=== PATIENT | female | born 1965 | race Caucasian/White ===

== ENCOUNTER → 2017-02-24 08:30 | Outpatient (CLI) | payer MEDICAID ==
[~2017-02-24 08:30] MED LIST: CENTRUM SILVER1 EAC3 PO; COLACE100 MG PO; DILAUDID4 MG PO; FISH OIL 1,0001 CA1 PO; HYDROCODON-ACE1 EAC7 PO; KLONOPIN1 MG PO; LOVENOX40 MG/0.4 SC; MIRALAX17 GM PO; PHENERGAN25 M1 PO; ZOFRAN ODT4 MG/UDTAB PO
[2017-04-12 13:14] VITALS: BMI 17.8
== END | disposition home or self-care (01) ==
LOC: D.CT 08:30
DX: R10.9 Unspecified abdominal pain (principal); R10.2 Pelvic and perineal pain

== ENCOUNTER 2017-03-07 21:26 | Observation (INO) | payer MEDICAID ==
[~2017-03-07] VITALS: Ht 172.7 cm; Wt 49.1 kg
[2017-03-07 23:44] LABS: INR 1.04 (0.85-1.17); PROTIME 13.5 SECONDS (11.6-15.0)
[2017-03-07 23:45] LABS: HEMATOCRIT 35.1 % (36.0-48.0); HEMOGLOBIN 11.9 g/dL (12-16); LYMPHOCYTES 12.3 % (15-50); MCH 32.8 pg (26.0-34.0); MCHC 33.9 g/dL (31.0-37.0); MCV 96.7 fL (80.0-100.0); NEUTROPHILS 79.6 % (40-80); PLATELET COUNT 324 10x3/uL (130-400); RBC 3.63 10x6/uL (4.00-5.40); RDW 12.6 % (11.5-14.5); WBC 13.2 10x3/uL (4.8-10.8)
[2017-03-07 23:49] LABS: ALBUMIN 3.2 g/dL (3.4-5.0); ALKALINE PHOSPHATASE 61 U/L (46-116); ALT (SGPT) 20 U/L (10-68); BILIRUBIN - TOTAL 0.25 mg/dL (0.2-1.3); CALC OSMOLALITY 275 mosm/kg (275-300); CALCIUM 9.5 mg/dL (8.5-10.1); CARBON DIOXIDE 27.9 mmol/L (21.0-32.0); CHLORIDE - SERUM 99 mmol/L (98-107); CREATINE KINASE 16 UL (21-215); CREATININE - SERUM 0.7 mg/dL (0.6-1.3); GLUCOSE 147 mg/dL (74-106); POTASSIUM - SERUM 4.1 mmol/L (3.5-5.1); PROTEIN - SERUM 7.8 g/dL (6.4-8.2); SODIUM 137 mmol/L (136-145); UREA NITROGEN 9 mg/dL (7-18); eGFR NON AFRICAN AMERICAN > 90 mL/min (90-120)
[2017-03-08 00:08] LABS: APPEARANCE CLEAR (CLEAR); BILIRUBIN NEGATIVE (NEGATIVE); COLOR YELLOW (YELLOW); GLUCOSE NEGATIVE (NEGATIVE); KETONE NEGATIVE (NEGATIVE); NITRITE NEGATIVE (NEGATIVE); PROTEIN TRACE mg/dL (NEGATIVE); SPECIFIC GRAVITY 1.015 (1.005-1.020); UDS - AMPHET NEGATIVE QUAL (NEGATIVE); UDS - BARB NEGATIVE QUAL (NEGATIVE); UDS - BENZO NEGATIVE QUAL (NEGATIVE); UDS - COCAINE NEGATIVE QUAL (NEGATIVE); UDS - OPIATE POSITIVE QUAL (NEGATIVE); UDS - PCP NEGATIVE QUAL (NEGATIVE); UDS - THC NEGATIVE QUAL (NEGATIVE); UROBILINOGEN NORMAL (NORMAL)
[2017-03-08 00:11] LABS: BACTERIA FEW /hpf (NONE SEEN); EPITHELIAL CELLS 0-5 /hpf (0-5); RED CELLS - URINE 0-5 /hpf (0-5)
[2017-03-08] MEDS ORDERED: PHENERGAN25 M1 PO (04:23)
[2017-03-08] MEDS ORDERED: DILAUDID4 MG PO (04:23)
[2017-03-08] MEDS ORDERED: LOVENOX40 MG/0.4 SC (04:24)
[2017-03-08] MEDS ORDERED: COLACE100 MG PO (04:26)
[2017-03-08] MEDS ORDERED: KLONOPIN1 MG PO (04:26)
[2017-03-08] MEDS ORDERED: MIRALAX17 GM PO (04:28)
[2017-03-08 06:45] VITALS: BP 154/81; Ht 172.7 cm; Wt 49.1 kg
--- NOTE | 2017-03-08 08:09 | NUR ---
AWAKE AND ALERT. ORIENTED X3. C/O PAIN AND NAUSEA. BANKING ATTORNEY INCREASED PER ORDERS AND GIVEN 12.5 PHENERGAN SLOW IVP FOR NAUSEA. WILL MONITOR. LUNGS ARE CLEAR BIALTERALLY, NO COUGH NOTED. SKIN IS INTACT WITHOUT REDNESS EXCEPT DRAIN TO LEFT LOWER BACK/SIDE WHICH HAS A DRY INTACT DRESSING IN PLACE AND SCANT AMOUNT OF SEROUS DRAINAGE NOTED. WILL MONITOR. IV TO LEFT FOREARM IS PATNET WITHOUT REDNESS AT INSERTION SITE. DENIES FURTHER NEEDS. MOM AT BEDSIDE.
[2017-03-08 09:27] VITALS: BP 143/74
--- NOTE | 2017-03-08 10:00 | NUR ---
RESTING QUIETLY WITH EYES CLOSED. NO NEEDS NOTED.
[2017-03-08 13:08] VITALS: BP 139/67
--- NOTE | 2017-03-08 14:15 | NUR ---
REPORT CALLED TO MICHAEL MACK RN AT [facility]. ALL QUESTIONS ANSWERED.
--- NOTE | 2017-03-08 15:37 | NUR ---
DISCHARGED TO [facility] VIA AMBULANCE. MOM AT BEDSIDE.
[2017-04-07] MEDS ORDERED: PHENERGAN25 M1 PO (08:17)
[2017-04-07] MEDS ORDERED: KLONOPIN1 MG PO (08:18)
[2017-04-07] MEDS ORDERED: ZOFRAN ODT4 MG/UDTAB PO (08:19)
== END 2017-03-08 15:38 | disposition short-term general hospital (02) ==
LOC: D.ER 21:26 → D.MS 03-08 02:47 → OBSVTIME 03-08 02:47 → D.MS 03-08 02:47
PROVIDERS: Nurse Practitioner Family; ADMIT Obstetrics & Gynecology
DX: G89.3 Neoplasm related pain (acute) (chronic) (principal); D49.59 Neoplasm of unspecified behavior of other genitourinary organ; K75.9 Inflammatory liver disease, unspecified; R18.8 Other ascites

== ENCOUNTER 2017-04-12 11:49 | Day surgery (SDC) | payer MEDICAID ==
[~2017-04-12] VITALS: Ht 172.7 cm; Wt 53.1 kg
--- NOTE | ~2017-04-12 | OP ---
PATIENT NAME: KELVIN PIERRE MEDICAL RECORD: [id number] :65 LOCATION:D.OPS ADMISSION DATE: SURGEON: ALAN SNIDER MD DATE OF OPERATION: 04/12/2017 PREOPERATIVE DIAGNOSES: 1. Ovarian cancer. 2. Anemia due to chemotherapy. POSTOPERATIVE DIAGNOSES: 1. Ovarian cancer. 2. Anemia due to chemotherapy. PROCEDURES: 1. Left subclavian vein port placement. 2. Fluoroscopic interpretation. SURGEON: Alan Snider MD OPERATIVE PROCEDURE: The patient's left chest was prepped and draped in sterile fashion. A needle was used to cannulate the left subclavian vein. The guidewire was advanced with ease. Fluoro was used to note that the wire was in good position in the venous system. A skin incision was made on the left lateral chest and a subcutaneous pouch was made over the pectoral fascia. The catheter was tunneled between this pouch and the wire exit site. The port was then sutured to the pectoral fascia using interrupted 4-0 Prolenes times 2. The catheter was then cut with a beveled tip at 22 cm. The dilator trocar device was placed over the wire and the wire and dilator were removed. The catheter tip was advanced through the trocar and the trocar was removed. Fluoro was used to note that the catheter tips were in good position at the right atrial superior vena caval junction. The catheter aspirated nonpulsatile dark blood and flushed easily with heparinized saline. The subcutaneous tissues were reapproximated with interrupted 3-0 Vicryl and the skin was closed with subcutaneous 5-0 Monocryl. The port was accessed and flushed one last time and a dressing was applied. COMPLICATIONS: None. CONDITION: Stable. ANESTHESIA: General endotracheal. BLOOD LOSS: Minimal. TRANSINT:[id number] Voice Confirmation ID: [id number] DOCUMENT ID: [id number] ALAN SNIDER MD at 0956 CC: HELGA SAMSON MD and STU COTTON MD [id number] DICTATION DATE: 04/12/17 1530 TOOTH GRINDER: 04/12/17 1637 [facility] 04/12/17 [facility] [address] [id number]
[~2017-04-12 11:49] MED LIST changes: -CENTRUM SILVER1 EAC3 PO; -FISH OIL 1,0001 CA1 PO; -HYDROCODON-ACE1 EAC7 PO
[2017-04-12 12:31] LABS: BASOPHILS 0 % (0-2); EOSINOPHILS 1.5 % (0-7); HEMATOCRIT 29.6 % (36.0-48.0); HEMOGLOBIN 9.5 g/dL (12-16); IMMATURE GRANULOCYTES 0.4 % (0-5); LYMPHOCYTES 35.6 % (15-50); MCH 31.9 pg (26.0-34.0); MCHC 32.1 g/dL (31.0-37.0); MCV 99.3 fL (80.0-100.0); MEAN PLATELET VOLUME 9.1 fL (7.4-10.4); MONOCYTES 11.3 % (2-11); NEUTROPHILS 51.2 % (40-80); RBC 2.98 10x6/uL (4.00-5.40); RDW 17.4 % (11.5-14.5); WBC 2.8 10x3/uL (4.8-10.8)
[2017-04-12 12:32] LABS: PLATELET COUNT 177 10x3/uL (130-400)
[2017-04-12 12:49] LABS: APTT 27.3 SECONDS (22.8-39.4); INR 1.04 (0.85-1.17); PROTIME 13.2 SECONDS (11.6-15.0)
[2017-04-12 12:55] LABS: ALBUMIN 3.8 g/dL (3.4-5.0); ALKALINE PHOSPHATASE 50 U/L (46-116); ALT (SGPT) 13 U/L (10-68); BILIRUBIN - TOTAL 0.16 mg/dL (0.2-1.3); CALC OSMOLALITY 282 mosm/kg (275-300); CALCIUM 9.5 mg/dL (8.5-10.1); CARBON DIOXIDE 31.8 mmol/L (21.0-32.0); CHLORIDE - SERUM 101 mmol/L (98-107); CREATININE - SERUM 0.6 mg/dL (0.6-1.3); GLUCOSE 105 mg/dL (74-106); POTASSIUM - SERUM 3.9 mmol/L (3.5-5.1); PROTEIN - SERUM 7.2 g/dL (6.4-8.2); SODIUM 141 mmol/L (136-145); UREA NITROGEN 19 mg/dL (7-18); eGFR NON AFRICAN AMERICAN > 90 mL/min (90-120)
[2017-04-12] MEDS ORDERED: CENTRUM SILVER1 EAC3 PO (13:12)
[2017-04-12] MEDS ORDERED: FISH OIL 1,0001 CA1 PO (13:13)
[2017-04-12 13:14] VITALS: BP 125/79; Ht 172.7 cm; Wt 53.1 kg
[2017-04-12] MEDS ORDERED: HYDROCODON-ACE1 EAC7 PO (15:27)
== END 2017-04-12 16:35 | disposition home or self-care (01) ==
LOC: D.OPS 11:49 → D.PAN 14:30 → D.OPS 16:35
PROVIDERS: Anesthesiology
DX: D64.81 Anemia due to antineoplastic chemotherapy (principal); C56.9 Malignant neoplasm of unspecified ovary; Z01.812 Encounter for preprocedural laboratory examination

== ENCOUNTER → 2018-03-21 16:55 | Outpatient (CLI) | payer MEDICAID ==
[2017-04-12 13:14] VITALS: BMI 17.8
[~2018-03-21 16:55] MED LIST changes: +CENTRUM SILVER1 EAC3 PO; +FISH OIL 1,0001 CA1 PO; +HYDROCODON-ACE1 EAC7 PO
== END | disposition home or self-care (01) ==
LOC: D.MAMMO 10:30
DX: Z12.31 Encounter for screening mammogram for malignant neoplasm of breast (principal)

== ENCOUNTER → 2019-03-23 07:55 | Outpatient (CLI) | payer MEDICAID ==
[2017-04-12 13:14] VITALS: BMI 17.8
== END | disposition home or self-care (01) ==
LOC: D.CT 07:55
PROVIDERS: ATTEND Surgery
DX: C56.9 Malignant neoplasm of unspecified ovary (principal)

== ENCOUNTER 2019-03-30 05:49 | Day surgery (SDC) | payer MEDICAID ==
[~2019-03-30] VITALS: Ht 172.7 cm; Wt 56.8 kg
--- NOTE | ~2019-03-30 | OP ---
PATIENT NAME: KELVIN FLOWER MEDICAL RECORD: [id number] :65 LOCATION:[place] ADMISSION DATE: SURGEON: ALAN SNIDER MD DATE OF OPERATION: 03/30/2019 PREOPERATIVE DIAGNOSES: Vaginal cancer with partial large bowel obstruction. POSTOPERATIVE DIAGNOSES: Vaginal cancer with partial large bowel obstruction. PROCEDURE: Flexible sigmoidoscopy. SURGEON: Alan Snider MD REPORT OF PROCEDURE: I performed a digital rectal exam and I could feel a mass present at the tip of my finger. I felt like I could maybe get my fingertip through this opening, but it was very difficult to tell. I then performed a vaginal exam and under digital examination, the posterior wall of the vagina was very firm and nodular consistent with the known malignancy. Upon performing this, there was noted to be some bleeding from the vaginal region. We then inserted the Olympus endoscope. When we had gotten to about 2 cm from the anal verge, we encountered a firm mass, which appeared to be not only compression externally, but also incorporating a portion of the colon itself. I could see a very small opening through this, but was never able to pass the scope. At this point, we discontinued the endoscopy. COMPLICATIONS: None. CONDITION: Stable. ANESTHESIA: TIVA. BLOOD LOSS: Minimal. TRANSINT:[id number] Voice Confirmation ID: [id number] DOCUMENT ID: [id number] ALAN SNIDER MD CC: STU COTTON [id number] DICTATION DATE: 03/30/19810 PHOTO LAB MANAGER: 03/30/19 1125 [facility] 03/30/19 [address] [place] [address]
[2019-03-30 06:12] LABS: BASOPHILS 0.1 % (0-2); EOSINOPHILS 0.7 % (0-7); HEMATOCRIT 33.8 % (36.0-48.0); HEMOGLOBIN 10.9 g/dL (12-16); IMMATURE GRANULOCYTES 0.4 % (0-5); LYMPHOCYTES 7.6 % (15-50); MCH 35.5 pg (26.0-34.0); MCHC 32.2 g/dL (31.0-37.0); MCV 110.1 fL (80.0-100.0); MEAN PLATELET VOLUME 9.4 fL (7.4-10.4); MONOCYTES 10.7 % (2-11); NEUTROPHILS 80.5 % (40-80); PLATELET COUNT 186 10x3/uL (130-400); RBC 3.07 10x6/uL (4.00-5.40); WBC 7.3 10x3/uL (4.8-10.8)
[2019-03-30 06:34] LABS: CALC OSMOLALITY 284 mosm/kg (275-300); CALCIUM 9.3 mg/dL (8.5-10.1); CARBON DIOXIDE 32.1 mmol/L (21.0-32.0); CHLORIDE - SERUM 102 mmol/L (98-107); CREATININE - SERUM 0.8 mg/dL (0.6-1.3); GLUCOSE 108 mg/dL (74-106); POTASSIUM - SERUM 3.2 mmol/L (3.5-5.1); SODIUM 142 mmol/L (136-145); UREA NITROGEN 16 mg/dL (7-18); eGFR NON AFRICAN AMERICAN 79 mL/min (90-120)
[2019-03-30] MEDS ORDERED: ULTRAM50 MG PO (06:40)
[2019-03-30] MEDS ORDERED: VITAMIN D31000 UNIT PO (06:41)
[2019-03-30 06:56] VITALS: BP 115/77; Ht 172.7 cm; Wt 56.8 kg
== END 2019-03-30 09:12 | disposition home or self-care (01) ==
LOC: D.OPS 05:49
PROVIDERS: ATTEND Surgery
DX: C52 Malignant neoplasm of vagina (principal); K56.690 Other partial intestinal obstruction; C56.9 Malignant neoplasm of unspecified ovary

== ENCOUNTER 2019-04-18 17:32 | Inpatient (IN) | payer MEDICAID ==
[~2019-04-18] VITALS: Ht 167.6 cm; Wt 67.1 kg
[~2019-04-18 17:32] MED LIST changes: +ULTRAM50 MG PO; +VITAMIN D31000 UNIT PO
[2019-04-19] MEDS ORDERED: GLUCOSAMINE (08:55)
[2019-04-19] MEDS ORDERED: TUMERIC (08:55)
[2019-04-19 09:44] LABS: APTT 25.7 SECONDS (22.8-39.4); INR 1.1 (0.85-1.17); PROTIME 14.2 SECONDS (11.6-15.0)
[2019-04-19 09:47] LABS: CALC OSMOLALITY 277 mosm/kg (275-300); CARBON DIOXIDE 32.4 mmol/L (21.0-32.0); CHLORIDE - SERUM 101 mmol/L (98-107); CREATININE - SERUM 0.8 mg/dL (0.6-1.3); GLUCOSE 102 mg/dL (74-106); POTASSIUM - SERUM 3.4 mmol/L (3.5-5.1); SODIUM 139 mmol/L (136-145); UREA NITROGEN 12 mg/dL (7-18); eGFR NON AFRICAN AMERICAN 79 mL/min (90-120)
[2019-04-19 10:49] LABS: BASOPHILS 0.2 % (0-2); EOSINOPHILS 0.5 % (0-7); HEMOGLOBIN 10.4 g/dL (12-16); IMMATURE GRANULOCYTES 0.7 % (0-5); LYMPHOCYTES 6.1 % (15-50); MCH 35.7 pg (26.0-34.0); MCHC 32.5 g/dL (31.0-37.0); MEAN PLATELET VOLUME 11.8 fL (7.4-10.4); MONOCYTES 6.1 % (2-11); NEUTROPHILS 86.4 % (40-80); RBC 2.91 10x6/uL (4.00-5.40); RDW 16.6 % (11.5-14.5); WBC 13.2 10x3/uL (4.8-10.8)
[2019-04-19 10:53] LABS: PLATELET COUNT 65 10x3/uL (130-400)
[2019-04-19 11:45] LABS: PLATELET ESTIMATE DECREASED
[2019-04-20] VITALS (15 sets, daily range): BP systolic 79–140; BP diastolic 43–79; BMI 19.9; BMI 20.2
--- NOTE | 2019-04-20 09:07 | NUR ---
0845 PT C/O ARM HURTING AROUND IV SITE AFTER MORPHINE IV WAS GIVEN. AREA IS RED. SOME ITCHING ASSOCIATED WITH PAIN. 0850 PIERRE OCHOA CRNA AT BEDSIDE AND STATES THAT IT IS AN ALLERGIC REACTION DUE TO HISTAMINE RELEASE. ORDERS RECEIVED FOR BENADRYL. 0905 REDNESS AROUND IV SITE IS LESS AFTER ADMINISTRATION OF BENADRYL IV. PT REPORTS THAT PAIN AND ITCHING IS GONE.
--- NOTE | 2019-04-20 12:50 | NUR ---
1245 TYPE AND SCREEN SPECIMEN AND CBC BLOOD SPECIMEN OPTAINED AND SENT TO LAB
[2019-04-20 13:10] LABS: BASOPHILS 0.1 % (0-2); EOSINOPHILS 0.2 % (0-7); HEMATOCRIT 26.1 % (36.0-48.0); HEMOGLOBIN 8.7 g/dL (12-16); IMMATURE GRANULOCYTES 0.7 % (0-5); MCH 36.1 pg (26.0-34.0); MCHC 33.3 g/dL (31.0-37.0); MCV 108.3 fL (80.0-100.0); MEAN PLATELET VOLUME 11.4 fL (7.4-10.4); PLATELET COUNT 77 10x3/uL (130-400); RBC 2.41 10x6/uL (4.00-5.40); RDW 16.5 % (11.5-14.5)
--- NOTE | 2019-04-20 14:42 | NUR ---
PATIENT VS LOW. MANUAL WAS 78/42 AND 76/40. REPORTED TO DR SNIDER HER H/H AND BP. HE SAID TO RUN A BOLUS. WCTM
--- NOTE | 2019-04-20 17:44 | NUR ---
PT BROUGHT TO ICU PLACED ON BEDSIDE MONITORING. IS CONVERSANT. SALINE BOLUS GIVEN. ORDERS RECEIVED FROM DR RAYMUNDO ENTERED.
--- NOTE | 2019-04-20 19:40 | NUR ---
PATIENT RESTING COMFORTABLY, AT BEDSIDE, SHIFT ASSESSMENT COMPLETED, PT AAOX4. 98% ROOM AIR, ATRIAL FLUTTER AT A RATE OF 128 NOTED, PRBC INFUSING AT THIS TIME. ABDOMEN IS DISTENDED AND TENDER PALPABLE MASSES LEFT AND RIGHT SUPRAPUBIC AREA. PATIENT DENIES NEEDS AT THIST TIME, SEE FLOWSHEET FOR FULL ASSESSMENT.
--- NOTE | 2019-04-20 20:15 | NUR ---
LAP SITE BLEEDING THROUGH BANDAID. REMOVED AND PRESSURE HELD, RE DRESSED WITH 4X4 AND PAPERTAPE. DRESSING SATURATED THROUGH WITHIN 10 MINUTES, REDRESSED WITH ABD PAD AND MEDIPORE TAPE WHILE HOLDING FIRM PRESSURE, WILL CONTINUE TO MONITOR
--- NOTE | 2019-04-20 21:36 | NUR ---
PATIENT REQUESTED PRN MEDICATIONS SEE EMAR FOR ADMINISTRATION
--- NOTE | 2019-04-20 23:04 | NUR ---
REASSESSMENT COMPLETED SEE FLOWSHEET - DR SNIDER CALLED UPDATE GIVEN ALL QUESTIONS ANSWERED. PT PROVIDED WITH TOOTHBRUSH AND TOOTHPASTE PER REQUEST, INDEPENDANT ORAL CARE. 1 UNIT FFP INFUSING AT THIS TIME. VSS CPOC
[2019-04-21] VITALS (17 sets, daily range): BP systolic 115–150; BP diastolic 60–88; Ht 167.6 cm; Wt 67.1 kg
--- NOTE | 2019-04-21 01:30 | NUR ---
ENCOURAGED PATIENT TO SIT ON BEDPAN FOR URINATED. 150 CC OUTPUT AT THIS TIME.
--- NOTE | 2019-04-21 03:15 | NUR ---
REASSESSMENT COMPLETED SEE FLOWSHEET
--- NOTE | 2019-04-21 04:13 | NUR ---
PATIENT PROVIDED WITH BEDPAN AT THIS TIME 200 CC OUPTUT AT THIS TIME
[2019-04-21 04:25] LABS: BASOPHILS 0.1 % (0-2); EOSINOPHILS 0.1 % (0-7); HEMATOCRIT 24.7 % (36.0-48.0); HEMOGLOBIN 8.4 g/dL (12-16); IMMATURE GRANULOCYTES 0.5 % (0-5); LYMPHOCYTES 5.6 % (15-50); MCH 33.6 pg (26.0-34.0); MEAN PLATELET VOLUME 9.9 fL (7.4-10.4); MONOCYTES 7.9 % (2-11); NEUTROPHILS 85.8 % (40-80); RDW 19.1 % (11.5-14.5)
[2019-04-21 04:27] LABS: MCV 98.8 fL (80.0-100.0); WBC 15.3 10x3/uL (4.8-10.8)
[2019-04-21 04:28] LABS: PLATELET COUNT 134 10x3/uL (130-400)
[2019-04-21 04:36] LABS: CALC OSMOLALITY 284 mosm/kg (275-300); CALCIUM 7.9 mg/dL (8.5-10.1); CARBON DIOXIDE 30.7 mmol/L (21.0-32.0); CHLORIDE - SERUM 106 mmol/L (98-107); CREATININE - SERUM 0.7 mg/dL (0.6-1.3); GLUCOSE 117 mg/dL (74-106); POTASSIUM - SERUM 3.2 mmol/L (3.5-5.1); SODIUM 142 mmol/L (136-145); UREA NITROGEN 15 mg/dL (7-18); eGFR NON AFRICAN AMERICAN > 90 mL/min (90-120)
--- NOTE | 2019-04-21 07:00 | NUR ---
BEDSIDE REPORT RECEIVED. SHIFT ASSESSMENT COMPLETED PER FLOWSHEET, SEE FLOWSHEET FOR INFORMATION. PT DEMONSTRATED HOW TO EMPTY HER OWN COLOSTOMY BAG CORRECTLY. WILL CONT TO MONITOR.
--- NOTE | 2019-04-21 09:00 | NUR ---
PT FAMILY AT BEDSIDE, NO ACUTE NEEDS OR DISTRESS NOTED AT THIS TIME. CALL LIGHT IN REACH, WILL CONT TO MONITOR.
--- NOTE | 2019-04-21 11:00 | NUR ---
REASSESSMENT COMPLETED PER FLOWSHEET, SEE FLOWSHEET FOR INFORMATION. PT DENIES ANY ACUTE NEEDS OR DISTRESS AT THIS TIME. EMPTIED COLOSTOMY. WILL CONT TO MONITOR.
--- NOTE | 2019-04-21 13:00 | NUR ---
PT DENIES ANY ACUTE NEEDS OR DISTRESS AT THIS TIME. PT ASSISSTED TO BSC. WILL CONT TO MONITOR.
[2019-04-21 13:34] LABS: BASOPHILS 0.1 % (0-2); EOSINOPHILS 0.5 % (0-7); HEMATOCRIT 25.6 % (36.0-48.0); HEMOGLOBIN 8.7 g/dL (12-16); IMMATURE GRANULOCYTES 0.4 % (0-5); LYMPHOCYTES 6.2 % (15-50); MEAN PLATELET VOLUME 10.1 fL (7.4-10.4); MONOCYTES 7.2 % (2-11); NEUTROPHILS 85.6 % (40-80); PLATELET COUNT 151 10x3/uL (130-400); RBC 2.56 10x6/uL (4.00-5.40); RDW 20.1 % (11.5-14.5); WBC 14.8 10x3/uL (4.8-10.8)
--- NOTE | 2019-04-21 14:54 | NUR ---
TEACHING PROVIDED FOR PT REGARDING COLOSTOMY CARE. ALSO CASE MANAGEMENT CONTACTED TO FIND OUT ABOUT MATERIAL SUPPLY FOR COLOSTOMY MATERIAL AT DISCHARGE FOR PT.
--- NOTE | 2019-04-21 17:26 | NUR ---
REPORT CALLED TO VICKEYIN MED SURG FOR PT TO GO TO ROOM 2234. WILL CONT TO MONITOR.
--- NOTE | 2019-04-21 17:35 | NUR ---
40 MEQ PO GIVEN. WILL CONT TO MONITOR.
--- NOTE | 2019-04-21 19:00 | NUR ---
BEDSIDE REPORT RECEIVED AND CARE OF PT ASSUMED. PT JUST TRANSFERRED FROM ICU. ORIENTED TO ROOM AND CALL LIGHT. NO IV FLUIDS INFUSING...PT STATED THEY HAD BEEN D/C'D THIS AM. COLOSTOMY PATENT WITH LOOSE STOOL IN COLLECTION BAG. STOMA PINK AND MOIST. SPOUSE AT BEDSIDE.
--- NOTE | 2019-04-21 20:00 | NUR ---
TEACHING PERFORMED ON OSTOMY APPLIANCE. PROVIDED SUPPLIES TO EMPTY AND X2 KITS FOR REPLACING.
--- NOTE | 2019-04-21 21:50 | NUR ---
GAVE TYLENOL PO PER REQUEST FOR BACK PAIN. WILL MONITOR FOR EFFECTIVENESS.
[2019-04-22] VITALS: BP 129/66
[2019-04-22 04:00] VITALS: BP 139/76
--- NOTE | 2019-04-22 06:25 | NUR ---
CHANGED OSTOMY APPLIANCE, TEACHING EACH STEP TO PATIENT AND SPOUSE. ANSWERED QUESTIONS AND SUGGESTED THEY MAY FIND VIDEOS ONLINE FOR TIPS IN MANAGING OSTOMY APPLIANCE.
--- NOTE | 2019-04-22 06:25 | NUR ---
TEACHING PERFORMED IN CHANGING OSTOMY APPLIANCE WITH PATIENT AND SPOUSE.
--- NOTE | 2019-04-22 09:25 | NUR ---
RESTING IN BED, NO DISTRESS NOTED, SL IN PLACE, IN ROOM, CONT TO MONITOR PAIN AND STOOLS
[2019-04-22 11:51] LABS: BASOPHILS 0.2 % (0-2); EOSINOPHILS 2.1 % (0-7); HEMATOCRIT 23.3 % (36.0-48.0); HEMOGLOBIN 7.8 g/dL (12-16); IMMATURE GRANULOCYTES 0.3 % (0-5); LYMPHOCYTES 8.2 % (15-50); MCH 34.1 pg (26.0-34.0); MCHC 33.5 g/dL (31.0-37.0); MCV 101.7 fL (80.0-100.0); MEAN PLATELET VOLUME 9.8 fL (7.4-10.4); MONOCYTES 7.3 % (2-11); NEUTROPHILS 81.9 % (40-80); PLATELET COUNT 148 10x3/uL (130-400); RBC 2.29 10x6/uL (4.00-5.40); RDW 19.9 % (11.5-14.5); WBC 12.7 10x3/uL (4.8-10.8)
[2019-04-22] MEDS ORDERED: ULTRAM50 MG PO (12:20)
[2019-04-22 13:17] VITALS: BP 123/78
--- NOTE | 2019-04-22 13:18 | MORECARE ---
CASE MANAGEMENT DISCHARGE SUMMARY PATIENT: KELVIN FLOWER UNIT: [id number] ADM DATE: 04/20/19 AGE: 53 : 65 SEX: F ROOM/BED: D.2234 AUTHOR: NICHELLE PARSONS PHYSICIAN: REFERRING PHYSICIAN: AKBAR SNIDER MD DATE OF SERVICE: 04/22/19 Discharge Plan Patient Name: KELVIN FLOWER [facility] [facility] 1965 Planned Disposition: Anticipated Discharge Date: Discharge Date: Expected LOS: Initial Reviewer: [email or web address] Initial Review Date: 04/22/2019 Generated: 04/22/19 2:17 pm DCPIA - Discharge Planning Initial Assessment Updated by [email or web address]: Catalina Vaca on 04/22/19 1:14 pm * Is the patient Alert and Oriented? Yes * How many steps to enter\exit or inside your home? * PCP CHAPIN * [facility] * Preadmission Environment Home with Family * ADLs Independent * Other Equipment BSC * List name and contact numbers for known caregivers / representatives who currently or will assist patient after discharge: BRYAN FLOWER - [facility] - [phone] * Verbal permission to speak to the caregivers and representatives has been obtained from the patient. Yes * Community resources currently utilized None * Additional services required to return to the preadmission environment? No * Can the patient safely return to the preadmission environment? Yes * Has this patient been hospitalized within the prior 30 days at any hospital? No Patient Name: KELVIN FLOWER Page [id number] at 1318 All edits/amendments must be made on the electronic document DICTATION DATE: 04/22/19 1317 REAL ESTATE REP: BHUMIKA 04/22/19 1317 RPT#: [id number] DC DATE: STATUS: ADM IN [facility] [address] [place] [address] END OF REPORT
--- NOTE | 2019-04-22 13:25 | MORECARE ---
CASE MANAGEMENT DISCHARGE SUMMARY PATIENT: KELVIN FLOWER UNIT: [id number] ADM DATE: 04/20/19 AGE: 53 : 65 SEX: F ROOM/BED: D.2234 AUTHOR: JAQUELINE,DOC PHYSICIAN: REFERRING PHYSICIAN: AKBAR SNIDER MD DATE OF SERVICE: 04/22/19 Discharge Plan Patient Name: KELVIN FLOWER Facility: [facility]:[place] : 1965 Planned Disposition: Anticipated Discharge Date: Discharge Date: Expected LOS: Initial Reviewer: [email or web address] Initial Review Date: 04/22/2019 Generated: 04/22/19 2:25 pm Comments DCP- Discharge Planning Updated by [email or web address]: Catalina Vaca on 04/22/19 12:[address] Patient Name: KELVIN FOLWER Admission Status: Urgent Accout number: [id number] Admission Date: 04-20-2019 : 1965 Admission Diagnosis: Attending: AKBAR SNIDER Current LOS: 2 Anticipated DC Date: Planned Disposition: Primary Insurance: [place] [employer]IONS [place] Discharge Planning Comments: CM met with patient to complete initial dc planning assessment. CM educated patient on the CM role and verbal consent given by patient to complete assessment. Patient lives at home with her where she is independent with her care. At discharge patient plans to return home and feels this is a safe discharge. CM discussed availability of home health, rehab services, and medical equipment. Her will be her industrial truck driver home. Patient has a bedside commode and states they have already ordered her ostomy supplies online and she has some from the hospital. CM gave patient an emergency ostomy kit from [facility]. CM gave [facility] [employer] [facility] and CM number if needed. Patient signed refusal for home health and DME at this time. Patient denied known discharge needs at this time. CM will continue to follow and will assist as needed with dc plans/needs Engineering Team Supervisor: Catalina Vaca DCPIA - Discharge Planning Initial Assessment Updated by [email or web address]: Catalina Vcaa on 04/22/19 1:14 pm * Is the patient Alert and Oriented? Yes * How many steps to enter\exit or inside your home? * PCP CHAPIN * Pharmacy [facility] * Preadmission Environment Home with Family * ADLs Independent * Other Equipment BSC * List name and contact numbers for known caregivers / representatives who currently or will assist patient after discharge: BRYAN FLOWER - [facility] - [phone] * Verbal permission to speak to the caregivers and representatives has been obtained from the patient. Yes * Community resources currently utilized None * Additional services required to return to the preadmission environment? No * Can the patient safely return to the preadmission environment? Yes * Has this patient been hospitalized within the prior 30 days at any hospital? No Last DP export: 04/22/19 12:18 p Patient Name: KELVIN FLOWER Page [id number] at 1325 All edits/amendments must be made on the electronic document DICTATION DATE: 04/22/19 1325 LENS BLANK GAUGER: BHUMIKA 04/22/19 1325 RPT#: [id number] DC DATE: STATUS: ADM IN [facility] [address] [place] [address] END OF REPORT
--- NOTE | 2019-04-22 14:49 | NUR ---
1404 D/C ORDERS PROVIDED TO PT, IV REMOVED, TIP INTACT, TAKEN TO PRIVATE VEHICLE PER W/C
--- NOTE | 2019-04-24 14:05 | DS ---
PATIENT:KELVIN FLOWER :65 MEDICAL RECORD: [id number] DISCHARGE SUMMARY ADMISSION DATE: 04/20/19 DISCHARGE DATE: 04/22/19 DATE OF ADMISSION: 04/30/2019. DATE OF DISCHARGE: 04/22/2019. ADMISSION DIAGNOSES: 1. Large bowel obstruction. 2. Metastatic ovarian cancer. 3. Anemia of chronic disease. DISCHARGE DIAGNOSES: 1. Large bowel obstruction. 2. Metastatic ovarian cancer. 3. Anemia of chronic disease. 4. Acute on chronic postoperative blood loss anemia. PROCEDURE: Laparoscopic double barrel sigmoid colectomy. CONSULTATIONS: None. REPORT OF HOSPITALIZATION: The patient was admitted to the hospital after a successful laparoscopic sigmoid double barrel colectomy. Postoperatively, the patient was noted to be tachycardic and hypotensive and blood count was around 5.5. The patient was transferred to the intensive care unit. She had known thrombocytopenia. She was given 3 units of packed red blood cells, a unit of FFP, and a unit of platelets. The patient had no bleeding following that time and was very stable. She was transferred to the floor the following day. She was tolerating a regular diet and had great ostomy output. She had marked improvement in her abdominal discomfort with the ostomy output. She was taught ostomy care by the nursing staff and at the day of discharge, she and her were very comfortable with the ostomy and had already ordered supplies. DISCHARGE INSTRUCTIONS: Return to clinic or call if any questions or concerns, fevers, chills, nausea, vomiting or worsening abdominal pain. ACTIVITIES: No heavy lifting or straining for 2 weeks postoperatively. FOLLOWUP: In clinic with me in 3 days for drain removal. TRANSINT:[id number] Voice Confirmation ID: [id number] DOCUMENT ID: [id number] AKBAR SNIDER MD at 1405 CC: STU COTTON [id number] DICTATION DATE: 04/22/19 1228 CONTAINER PACKER OPERATOR: 04/23/19 0704 DIS IN 04/22/[address] [address]
--- NOTE | 2019-04-24 14:05 | OP ---
PATIENT NAME: KELVIN FLOWER MEDICAL RECORD: [id number] :65 LOCATION:D.MS Wise2234 ADMISSION DATE:04/20/19 SURGEON: ALAN SNIDER MD DATE OF OPERATION: 04/20/2019 PREOPERATIVE DIAGNOSES: 1. Metastatic ovarian cancer. 2. Partial large bowel obstruction secondary to ovarian cancer. POSTOPERATIVE DIAGNOSES: 1. Metastatic ovarian cancer. 2. Partial large bowel obstruction secondary to ovarian cancer. PROCEDURE: Laparoscopic sigmoid colostomy double barrel. SURGEON: Alan Snider MD REPORT OF PROCEDURE: The patient's abdomen was prepped and draped in sterile fashion. A Veress needle inserted in the left upper quadrant and the abdomen was insufflated. A 5-mm Visiport trocar was inserted in the midabdomen on the right side. We could see the Veress needle and there was no sign of any injury to bowel or surrounding structures. We then placed another 5-mm trocar under direct visualization in the right lower quadrant. The patient's colon was markedly dilated, made it difficult for some of the determination of some of the intra-abdominal contents as we were very careful. We did not want to injure the bowel, I could see down towards the pelvis and the bowel was markedly distended extending down and making it hard for me to visualize any sort of structures present. I did see some evidence of metastatic disease present just to the left of the pelvic inlet. We eventually were able to find the patient's sigmoid colon. It appeared to be mobile enough for a loop sigmoid colostomy. An opening was made in left lower quadrant of the abdomen. Electrocautery was used to dissect through the subcutaneous tissues to the fascia. A stellate incision was made on the fascia and we the musculature of the rectus muscles and penetrated the posterior fascial layer. Once inside the abdomen, we pulled up the segment of sigmoid colon. We bluntly took down some lateral adhesions to the help allow the colon to get up through the abdominal wall more freely. With this in place, we were able to go head and mature the ostomy. A longitudinal incision was made through the antimesenteric side of the colon and in a Sandhya fashion, we matured the ostomy using multiple interrupted 4-0 Vicryls. A 14-Icelandic red rubber catheter had been inserted as a bridge and was looped over the bowel and sutured into place with 3-0 silks. We then reinserted the camera and instilled for insufflation, we did not see any evidence of leakage or bleeding intraabdominally. I irrigated out the left lower quadrant. At this point, the ports and insufflation were then removed. The 5 mm trocar sites were infused with 10 mL of 0.25% Marcaine with epinephrine and then closed with subcutaneous 5-0 Monocryl. An ostomy bag was applied to the abdomen. COMPLICATIONS: None. CONDITION: Stable. ANESTHESIA: General endotracheal and local. BLOOD LOSS: Minimal. OPERATIVE REPORT [id number] KELVIN FLOWER TRANSINT:[id number] Voice Confirmation ID: [id number] DOCUMENT ID: [id number] ALAN SNIDER MD at 1405 CC: HELGA SAMSON MD and STU COTTON [id number] DICTATION DATE: 04/20/19 1214 COWLMAN: 04/20/19 1817 DIS IN 04/22/19 [address] [place] [address]
--- NOTE | 2019-04-24 14:56 | MORECARE ---
CASE MANAGEMENT DISCHARGE SUMMARY PATIENT: KELVIN FLOWER UNIT: [id number] ADM DATE: 04/20/19 AGE: 53 : 65 SEX: F ROOM/BED: D.2234 AUTHOR: JAQUELINE,DOC PHYSICIAN: REFERRING PHYSICIAN: AKBAR SNIDER MD DATE OF SERVICE: 04/24/19 Discharge Plan Patient Name: KELVIN FLOWER Facility: [facility]:[place] : 1965 Planned Disposition: Anticipated Discharge Date: Discharge Date: 04/22/2019 Expected LOS: 0 Initial Reviewer: [email or web address] Initial Review Date: 04/22/2019 Generated: 04/24/19 3:55 pm DCP- Discharge Planning Updated by [email or web address]: Catalina Vaca on 04/22/19 12:[address] Patient Name: KELVIN FLOWER Admission Status: Urgent Accout number: [id number] Admission Date: 04-20-2019 : 1965 Admission Diagnosis: Attending: AKBAR SNIDER Current LOS: 2 Anticipated DC Date: Planned Disposition: Primary Insurance: [place] PR[employer]IONS [place] Discharge Planning Comments: CM met with patient to complete initial dc planning assessment. CM educated patient on the CM role and verbal consent given by patient to complete assessment. Patient lives at home with her where she is independent with her care. At discharge patient plans to return home and feels this is a safe discharge. CM discussed availability of home health, rehab services, and medical equipment. Her will be her powder truck driver home. Patient has a bedside commode and states they have already ordered her ostomy supplies online and she has some from the hospital. CM gave patient an emergency ostomy kit from [facility]. [facility] and CM number if needed. Patient signed refusal for home health and DME at this time. Patient denied known discharge needs at this time. CM will continue to follow and will assist as needed with dc plans/needs Copy Clerk: Catalina Vaca DCPIA - Discharge Planning Initial Assessment Updated by [email or web address]: Catalina Vaca on 04/22/19 1:14 pm * Is the patient Alert and Oriented? Yes * How many steps to enter\exit or inside your home? * PCP CHAPIN * Pharmacy [facility] * Preadmission Environment Home with Family * ADLs Independent * Other Equipment BSC * List name and contact numbers for known caregivers / representatives who currently or will assist patient after discharge: BRYAN FLOWER - [facility] - [phone] * Verbal permission to speak to the caregivers and representatives has been obtained from the patient. Yes * Community resources currently utilized None * Additional services required to return to the preadmission environment? No * Can the patient safely return to the preadmission environment? Yes * Has this patient been hospitalized within the prior 30 days at any hospital? No Last DP export: 04/22/19 12:25 p Patient Name: KELVIN FLOWER Page [id number] at 1456 All edits/amendments must be made on the electronic document DICTATION DATE: 04/24/19 1455 CHIEF SPECIALIST LEED: BHUMIKA 04/24/19 1455 RPT#: [id number] DC DATE:04/22/19 STATUS: DIS IN [facility] [address] [place] [address] END OF REPORT
== END 2019-04-22 14:10 | disposition home or self-care (01) | DRG 982 ==
LOC: D.ICU 04-20 07:30 → D.SDCHOLD 04-20 07:30 → D.MS 04-20 12:50 → D.ICU 04-20 17:21 → D.MS 04-21 18:49
PROVIDERS: Anesthesiology; ADMIT Surgery; ATTEND Surgery
PROC: 0D1N4Z4 Bypass Sigmoid Colon to Cutaneous, Percutaneous Endoscopic Approach (ICD-10-PCS; principal; 2019-04-20 09:30)
DX: C56.9 Malignant neoplasm of unspecified ovary (principal); C79.9 Secondary malignant neoplasm of unspecified site; D62 Acute posthemorrhagic anemia; K56.690 Other partial intestinal obstruction; I95.9 Hypotension, unspecified; D63.8 Anemia in other chronic diseases classified elsewhere